=== PATIENT | female | born 1970 | race Caucasian/White ===

== ENCOUNTER → 2019-05-24 13:07 | Outpatient (CLI) | payer OTHER, SELFPAY ==
--- NOTE | ~2019-05-24 | XR_ITS ---
EXAMINATION: XR foot LT 2V, XR ankle LT 2V EXAM DATE: 05/24/2019 13:27 INDICATION: Initial encounter following injury, with pain of the left foot, ankle. TECHNIQUE: Frontal and lateral projections of the left foot. Frontal and lateral projections left a nkle. Comparison is made to prior examination from 10/08/2014. FINDINGS: There is a large left ankle joint effusion. Possible tiny acute nondisplaced closed posttr aumatic avulsion fracture at the tip of the lateral malleolus. There is overlying soft tissue swellin g. This type of injury could be treated as a sprain. The ankle mortise appears intact. Metatarsal cayla juan jose, foot unremarkable. IMPRESSION: Possible acute nondisplaced left medial malleolar tip avulsion fracture. Ankle joint eff usion. Reviewed, dictated and finalized at location B. OGRAPH RETOUCHER IMPRESSION: Possible acute nondisplaced left medial malleolar tip avulsion fra cture. Ankle joint effusion.
== END ==
PROVIDERS: PCP Family Medicine; Visit Provider Physician Assistant Medical
DX: S99.922A Unspecified injury of left foot, initial encounter (principal); S99.912A Unspecified injury of left ankle, initial encounter; X58.XXXA Exposure to other specified factors, initial encounter; M25.472 Effusion, left ankle
CPT/HCPCS: 73600; 73620

== ENCOUNTER → 2019-05-29 11:16 | Outpatient (CLI) | payer OTHER, SELFPAY ==
--- NOTE | ~2019-05-29 | XR_ITS ---
XR ankle LT min 3V DATE: 05/29/2019 11:51 INDICATION: Left ankle injury, pain TECHNIQUE: 4 views COMPARISON: None FINDINGS: There is mild plantar and posterior calcaneal enthesopathy. There is evidence of ankle joint effusion. There is mild lateral soft tissue swelling of the ankle. N o fracture or dislocation, periosteal reaction or bone destruction. IMPRESSION: Mild lateral soft tissue swelling, ankle joint effusion Lateral and posterior calcaneal enthesopathy Reviewed, dictated and finalized at location B. ER TAPER
== END ==
PROVIDERS: PCP Family Medicine; Visit Provider Nurse Practitioner Family
DX: S99.919A Unspecified injury of unspecified ankle, initial encounter (principal); M25.472 Effusion, left ankle; M77.32 Calcaneal spur, left foot; X58.XXXA Exposure to other specified factors, initial encounter
CPT/HCPCS: 73610

== ENCOUNTER 2019-09-26 10:02 | Outpatient (CLI) | payer OTHER, SELFPAY ==
--- NOTE | ~2019-09-26 | MM_ITS ---
EXAMINATION: MM screening alexy BI w naheed HISTORY: Screening mammogram, family history of breast cancer in her sister. TECHNIQUE: Craniocaudal and mediolateral oblique 3-D tomosynthesis images were obtained and synthetic 2-D images were generated. CAD analysis was submitted and interpreted. COMPARISON: 09/08/2018, 07/29/2017, 07/21/2016 BREAST PARENCHYMAL COMPOSITION: There are scattered areas of fibroglandular density. FINDINGS: There is no evidence of suspicious mass, calcification, or architectural distortion to sugg est malignancy in either breast. There has been no suspicious interval change. IMPRESSION: 1. No mammographic evidence of malignancy. 2. Recommend routine screening mammography in one year. BI-RADS Category 1: Negative Reviewed, dictated and finalized at location A.
== END 2019-09-26 10:03 | disposition home or self-care (01) ==
LOC: ANHIMG 10:04
PROVIDERS: PCP Family Medicine; Visit Provider Obstetrics & Gynecology Gynecology
DX: Z12.31 Encounter for screening mammogram for malignant neoplasm of breast (principal)
CPT/HCPCS: 77063; 77067

== ENCOUNTER → 2020-09-02 13:25 | Outpatient (CLI) | payer OTHER, SELFPAY ==
--- NOTE | ~2020-09-02 | XR_ITS ---
XR tibia fibula RT 2V 09/02/2020 13:52 INDICATION: Right leg pain PROCEDURE: 2 views right tibia/fibula COMPARISON: No prior studies for comparison. FINDINGS: Fracture, dislocation or subluxation is not identified. The soft tissues appear within norm al limits. No foreign bodies are identified. IMPRESSION: 1: NO ACUTE BONE OR JOINT ABNORMALITY IDENTIFIED. Reviewed, dictated and finalized at location A.
== END ==
PROVIDERS: PCP Family Medicine; Visit Provider Physician Assistant Medical
DX: S89.91XA Unspecified injury of right lower leg, initial encounter (principal)
CPT/HCPCS: 73590

== ENCOUNTER → 2020-10-03 10:58 | Outpatient (CLI) | payer OTHER, SELFPAY ==
--- NOTE | ~2020-10-03 | MM_ITS ---
EXAMINATION: MM screening alexy BI w naheed HISTORY: Screening mammogram TECHNIQUE: Craniocaudal and mediolateral oblique 3-D tomosynthesis images were obtained and synthetic 2-D images were generated. CAD analysis was submitted and interpreted. COMPARISON: 09/26/2019, 09/08/2018, 07/29/2017 bilateral digital screening mammogram examinations BREAST PARENCHYMAL COMPOSITION: There are scattered areas of fibroglandular density. FINDINGS: Subtle grouped microcalcifications in the posterior outer left breast on CC projection. Laxmi gnostic left mammogram with magnification views is recommended. Otherwise there is no evidence of suspicious mass, calcification, or architectural distortion to sugg est malignancy in either breast. There has been no other suspicious interval change. IMPRESSION: 1. Subtle grouped microcalcifications in posterior outer left breast on craniocaudal view 2. Diagnostic left mammogram with magnification views is recommended BI-RADS Category 0: Incomplete: Needs additional imaging evaluation. Reviewed, dictated and finalized at location A. IMPRESSION: 1. Subtle grouped microcalcifications in posterior outer left breast on cranioc audal view 2. Diagnostic left mammogram with magnification views is recommended BI-RADS Category 0: Incomplete: Needs additional imaging evaluation.
== END ==
PROVIDERS: Visit Provider Nurse Practitioner
DX: Z12.31 Encounter for screening mammogram for malignant neoplasm of breast (principal); R92.8 Other abnormal and inconclusive findings on diagnostic imaging of breast
CPT/HCPCS: 77063; 77067

== ENCOUNTER → 2020-11-12 08:19 | Outpatient (CLI) | payer OTHER, SELFPAY ==
--- NOTE | ~2020-11-12 | MM_ITS ---
EXAMINATION: MM diagnostic mammo unilat LT HISTORY: Follow-up left breast calcifications TECHNIQUE: Additional 3-D tomosynthesis images of the left breast were performed and synthetic 2-D im ages were generated. CAD analysis was submitted and interpreted. COMPARISON: Comparison to multiple prior studies sequentially, with oldest reviewed study dated 07/04. BREAST PARENCHYMAL COMPOSITION: Breast composed of scattered areas of fibroglandular density. FINDINGS: There is a cluster of calcifications in the upper outer quadrant of the left breast posteri ilda. These calcifications are stable dating back to 07/05/2015, best seen on MLO views on prior studi es. No new masses, calcifications or architectural distortion to suggest malignancy. IMPRESSION: 1. No evidence for malignancy in the left breast. Stable benign left breast calcifications, upper out er quadrant. 2. Routine yearly screening mammogram and regular clinical breast examination are recommended. BI-RADS Category 2: Benign finding(s). Reviewed, dictated and finalized at location A. IMPRESSION: 1. No evidence for malignancy in the left breast. Stable benign left breast ron cifications, upper outer quadrant. 2. Routine yearly screening mammogram and regular clinical breast examination a re recommended. BI-RADS Category 2: Benign finding(s).
== END ==
PROVIDERS: Visit Provider Obstetrics & Gynecology Gynecology
DX: R92.8 Other abnormal and inconclusive findings on diagnostic imaging of breast (principal)
CPT/HCPCS: 77065

== ENCOUNTER → 2021-03-18 11:00 | Outpatient (CLI) | payer OTHER, SELFPAY ==
--- NOTE | ~2021-03-18 | XR_ITS ---
EXAMINATION: XR chest 2V DATE: 03/18/2021 11:19 INDICATION: Chronic cough TECHNIQUE: PA and lateral views of the chest are obtained. COMPARISON: 07/01/2017 FINDINGS: The lungs are free of acute opacities. There is no pleural effusion or pneumothorax. The ca rdiomediastinal silhouette is normal. There is mild thoracic spondylosis. IMPRESSION: 1. No acute cardiopulmonary abnormality. Reviewed, dictated and finalized at location A. 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
== END ==
PROVIDERS: PCP Family Medicine; Visit Provider Nurse Practitioner Family
DX: R05.3 Chronic cough (principal)
CPT/HCPCS: 71046

== ENCOUNTER → 2021-07-01 00:22 | Outpatient (CLI) | payer OTHER, SELFPAY ==
[2021-07-01 11:17] LABS: SARS-CoV-2 RNA PCR Negative
== END ==
PROVIDERS: PCP Family Medicine; Visit Provider Internal Medicine Gastroenterology
DX: Z01.812 Encounter for preprocedural laboratory examination (principal); Z20.822 Contact with and (suspected) exposure to COVID-19
CPT/HCPCS: C9803; U0003; U0005

== ENCOUNTER 2021-07-04 01:00 | Day surgery (SDC) | payer OTHER, SELFPAY ==
[2021-06-23 14:46] VITALS: BMI 35.6
[2021-07-04 06:06] VITALS: BP 139/95; PULSE 99; RESP 18; TEMP 36.4; O2SAT 98; BMI 34.7
[2021-07-04] MEDS: LACTATED RINGERS 1,000 ML 150 ML IV CONT (06:25)
--- NOTE | 2021-07-04 07:13 | PM.HPGS ---
History of Present Illness History of Present Illness Consent: Risks, benefits, and alternatives have been discussed and questions answered. Patient agrees to proceed with procedure. Chief complaint: neoplasm screening Narrative: Olivia Clarke is a 50 year old female here for first screening colonoscopy Review of Systems Constitutional: Constitutional: Denies headache(s) and Denies weakness Eyes: Eyes: Denies blurry vision ENT: Reports Normal hearing present, Denies headache(s) and Denies neck pain Cardiovascular: Cardiovascular: Denies chest pain and Denies dyspnea Respiratory: Respiratory: Denies dyspnea Gastrointestinal: Gastrointestinal: Reports no additional gastrointestinal complaints Genitourinary: Genitourinary: Denies dysuria Musculoskeletal: Musculoskeletal: Denies neck pain Integumentary/Breasts: Skin/Breast: Denies dry skin Neurologic: Reports Normal hearing present, Denies headache(s) and Denies weakness Psychiatric: Psychiatric: Denies anxiety Endocrine: Endocrine: Denies change in body appearance Hematologic/Lymphatic: Hematologic/Lymphatic: Denies easy bleeding Allergic/Immunologic: Allergic/Immunologic: Denies urticaria PMFSH Past Medical History Medical History (Updated 07/04/21 @ 07:13 by Cr Dunne MD) Achilles tendinitis of left lower extremity BMI 35.0-35.9,adult Colon cancer screening Left ankle sprain (05/23/19) Family History Family History Grandparent Hypertension Social History Social History Smoking packs per day: 0.25 Smoking cigarettes per day: 5.0 Years smoked: 12 Smoking pack-years: 3.00 Smoking status: Current every day smoker Tobacco type: cigarettes Second hand tobacco smoke exposure: No Alcohol intake: current Alcohol use details: Socially Substance use: never Substance use type: does not use Living arrangements: alone Spiritual care concerns: No Meds Home Medications and Allergies Home Medications Medication Instructions Recorded Confirmed Type fluoxetine 40 mg capsule 80 mg PO QAM 04/24/19 07/04/21 History levothyroxine 25 mcg capsule 0.05 mcg PO DAILY 04/24/19 07/04/21 History hydrochlorothiazide 25 mg tablet See Rx Instructions .ROUTE 03/23/21 07/04/21 Rx .COMPLEX #90 tablet ergocalciferol (vitamin D2) 1,250 mcg PO WEEKLY 06/23/21 07/04/21 History penicillin V potassium 500 mg PO Q8H 06/23/21 07/04/21 History Allergies Allergy/AdvReac Type Severity Reaction Status Date / Time No Known Allergies Allergy Verified 07/04/21 06:15 Vital Signs Vital Signs - 24 hr 07/04/21 06:06 Temperature 97.6 F Pulse Rate 99 Respiratory Rate 18 Blood Pressure 139/95 H Pulse Oximetry 98 Exam Const: General: comfortable and no acute distress HENMT: General nose exam: Normal nares present Eyes: General: appearance normal, both eyes and all related structures Neck: Neck: no JVD Resp: Auscultation: clear to auscultation bilaterally Cardio: Rate: regular rate Rhythm: regular rhythm GI: Inspection: non-distended GI Palp: Yes Soft to palpation Skin: General skin exam: normal color Neuro: General: gait normal Speech: normal speech Extrem: General: normal to inspection Psych: Mental Status: mental status grossly normal Assessment and Plan Assessment and plan (1) Colon cancer screening: Code(s): Z12.11 - Encounter for screening for malignant neoplasm of colon Status: Acute Assessment and Plan: colonoscopy
--- NOTE | 2021-07-04 07:15 | WPDANESEPPF ---
Anes - Initial Pre Proc Eval Procedure: Operation Date: 07/04/21 07:30 Proposed Procedures p Screening Colonoscopy - Cr Dunne MD Date/Time: 07/04/21 07:15 Surgeon: Cr Dunne MD Pre Op Diagnosis: neoplasm screening Patient Data Age: 50 Gender: F Height: 1.68 m Weight: 97.6 kg Last Vital Signs Temp 97.6 F 07/04/21 06:06 Pulse 99 07/04/21 06:06 Resp 18 07/04/21 06:06 BP 139/95 H 07/04/21 06:06 Pulse Ox 98 07/04/21 06:06 Allergies Allergy/AdvReac Type Severity Reaction Status Date / Time No Known Allergies Allergy Verified 07/04/21 06:15 Home Medications Medication Instructions Recorded Confirmed Type fluoxetine 40 mg capsule 80 mg PO QAM 04/24/19 07/04/21 History levothyroxine 25 mcg capsule 0.05 mcg PO DAILY 04/24/19 07/04/21 History hydrochlorothiazide 25 mg tablet See Rx Instructions .ROUTE 03/23/21 07/04/21 Rx .COMPLEX #90 tablet ergocalciferol (vitamin D2) 1,250 mcg PO WEEKLY 06/23/21 07/04/21 History penicillin V potassium 500 mg PO Q8H 06/23/21 07/04/21 History Patient hx anesthesia problems: none Family hx anesthesia problems: none Results Review: All pre-operative results and documents have been reviewed as part of the pre-operative evaluation. [facility] Past Medical History Medical History (Updated 07/04/21 @ 07:13 by Cr Dunne MD) Achilles tendinitis of left lower extremity BMI 35.0-35.9,adult Colon cancer screening Left ankle sprain (05/23/19) Family History Family History Grandparent Hypertension Social History Social History Smoking packs per day: 0.25 Smoking cigarettes per day: 5.0 Years smoked: 12 Smoking pack-years: 3.00 Smoking status: Current every day smoker Tobacco type: cigarettes Second hand tobacco smoke exposure: No Alcohol intake: current Alcohol use details: Socially Substance use: never Substance use type: does not use Living arrangements: alone Spiritual care concerns: No Anes - Eval Final PreProcedure Day of Procedure 07/04/21 07:15 Patient weight: obese Heart: regular rate and rhythm Lungs: clear to auscultation Airway: Mallampati scale Last oral intake: >/= 8 hours ASA classification: III Emergent: no Anesthetic plan: proceed Anesthesia type and monitoring: general GIVS and standard monitoring Results Review: All pre-operative results and documents have been reviewed as part of the pre-operative evaluation. Informed Consent: The patient's anesthetic plan and its attendant risks and benefits were discussed with the patient/family/POA. Questions were solicited and answers provided to the satisfaction of the patient/family/POA.
[2021-07-04 07:45] VITALS: BP 127/104; PULSE 73; RESP 24; O2SAT 98
[2021-07-04 07:55] VITALS: BP 148/85; PULSE 74; RESP 21; O2SAT 97
[2021-07-04 08:05] VITALS: BP 150/86; PULSE 69; RESP 22; O2SAT 99
== END 2021-07-04 08:10 | disposition home or self-care (01) ==
PROVIDERS: PCP Family Medicine; Visit Provider Internal Medicine Gastroenterology
PROC: 0DJD8ZZ Inspection of Lower Intestinal Tract, Via Natural or Artificial Opening Endoscopic (ICD-10-PCS; CPT 45378; principal; 2021-07-04 07:30)
DX: Z12.11 Encounter for screening for malignant neoplasm of colon (principal); K57.30 Diverticulosis of large intestine without perforation or abscess without bleeding; K64.8 Other hemorrhoids; E03.9 Hypothyroidism, unspecified; F17.210 Nicotine dependence, cigarettes, uncomplicated; E66.9 Obesity, unspecified; Z68.34 Body mass index [BMI] 34.0-34.9, adult
CPT/HCPCS: 45378; C9803; J2704; J7120; U0003; U0005

== ENCOUNTER → 2021-09-29 14:53 | Outpatient (CLI) | payer OTHER, SELFPAY ==
--- NOTE | ~2021-09-29 | XR_ITS ---
XR hand RT 2V DATE: 09/29/2021 15:38 INDICATION: Pain of right fingers TECHNIQUE: AP and lateral views COMPARISON: None FINDINGS: There are nondisplaced linear intra-articular fractures of the lateral corners of the bases of the distal phalanges of the third and fourth digits. No other fracture or dislocation, periosteal reaction or bone destruction, erosive change or chondroc alcinosis. Joint spaces are preserved. IMPRESSION: Nondisplaced linear intra-articular corner fractures of the lateral base of the distal ph alanges of the third and fourth digits Reviewed, dictated and finalized at location A. IMPRESSION: Nondisplaced linear intra-articular corner fractures of the lateral base of the distal phalanges of the third and fourth digits
== END ==
PROVIDERS: PCP Family Medicine; Visit Provider Nurse Practitioner Family
DX: S62.662A Nondisplaced fracture of distal phalanx of right middle finger, initial encounter for closed fracture (principal); S62.664A Nondisplaced fracture of distal phalanx of right ring finger, initial encounter for closed fracture; X58.XXXA Exposure to other specified factors, initial encounter
CPT/HCPCS: 73120

== ENCOUNTER → 2021-10-07 12:20 | Outpatient (CLI) | payer OTHER, SELFPAY ==
--- NOTE | ~2021-10-07 | MM_ITS ---
EXAMINATION: MM screening alexy BI w naheed HISTORY: Screening TECHNIQUE: Craniocaudal and mediolateral oblique 3-D tomosynthesis images were obtained and synthetic 2-D images were generated. CAD analysis was submitted and interpreted. COMPARISON: Comparison to multiple prior studies sequentially, with oldest reviewed study dated 07/21. BREAST PARENCHYMAL COMPOSITION: The breasts are heterogenously dense, which may obscure small masses FINDINGS: There is no evidence of suspicious mass, calcification, or architectural distortion to sugg est malignancy in either breast. There has been no suspicious interval change. IMPRESSION: 1. No mammographic evidence of malignancy. 2. Recommend routine screening mammography in one year. BI-RADS Category 1: Negative Reviewed, dictated and finalized at location A.
== END ==
PROVIDERS: PCP Family Medicine; Visit Provider Obstetrics & Gynecology Gynecology
DX: Z12.31 Encounter for screening mammogram for malignant neoplasm of breast (principal)
CPT/HCPCS: 77063; 77067

== ENCOUNTER → 2022-03-31 13:16 | Outpatient (CLI) | payer OTHER, SELFPAY ==
--- NOTE | ~2022-03-31 | US_ITS ---
Pelvic ultrasound. Clinical History: Pelvic pain Technique: Realtime transabdominal and transvaginal scanning of the pelvis was performed. Color flow Doppler and Doppler spectral analysis were performed. Findings: The uterus is anteverted. The endometrial stripe has a thickness of 18 mm. No focal mass i s identified. The right ovary measures 2.5 x 1.8 x 3.0 cm. No significant right ovarian or adnexal mass is seen. V ascular flow present in the right ovary. The left ovary measures 1.9 x 1.6 x 2.3 cm. No significant left ovarian or adnexal mass is seen. Vasc ular flow present in the left ovary on Doppler spectral analysis. There is no evidence of free fluid in the cul de sac. Impression: Endometrial stripe measures 18 mm in thickness. This is possibly related to stage in the menstrual cy mariam. If the patient is postmenopausal, this would represent abnormal endometrial thickening which req uire further workup for endometrial neoplasia or hyperplasia. Reviewed, dictated and finalized at location . BI DEVELOPER Impression: Endometrial stripe measures 18 mm in thickness. This is possibly related to sta ge in the menstrual cycle. If the patient is postmenopausal, this would represe nt abnormal endometrial thickening which require further workup for endometrial neoplasia or hyperplasia.
== END ==
PROVIDERS: Visit Provider Nurse Practitioner
DX: R10.2 Pelvic and perineal pain (principal)
CPT/HCPCS: 76830; 76856

== ENCOUNTER 2023-02-25 10:13 | Outpatient (CLI) | payer OTHER, SELFPAY ==
--- NOTE | ~2023-02-25 | US_ITS ---
Pelvic ultrasound. Clinical History: Abnormal uterine bleeding Technique: Realtime transabdominal scanning of the pelvis was performed. Color flow Doppler and Doppl er spectral analysis were performed. Findings: The uterus is anteverted, and measures 7.4 x 3.8 x 4.2 cm. The endometrial stripe has a th ickness of 3 mm. No focal mass is identified. The right ovary measures 1.8 x 1.3 x 1.9 cm. No significant right ovarian or adnexal mass is seen. The left ovary measures 1.8 x 1.4 x 1.9 cm. No significant left ovarian or adnexal mass is seen. There is no evidence of free fluid in the cul de sac. Impression: Unremarkable pelvic ultrasound. Reviewed, dictated and finalized at location . ING AND BONING SUPERVISOR Impression: Unremarkable pelvic ultrasound.
== END 2023-02-25 10:14 ==
PROVIDERS: PCP Nurse Practitioner; Visit Provider Nurse Practitioner
DX: N93.8 Other specified abnormal uterine and vaginal bleeding (principal)
CPT/HCPCS: 76856

== ENCOUNTER → 2023-03-01 12:03 | Outpatient (CLI) | payer OTHER, SELFPAY ==
--- NOTE | ~2023-03-01 | MM_ITS ---
EXAMINATION: MM screening alexy BI w naheed HISTORY: Screening mammogram TECHNIQUE: Craniocaudal and mediolateral oblique 3-D tomosynthesis images were obtained and synthetic 2-D images were generated. CAD analysis was submitted and interpreted. COMPARISON: 10/07/2021 bilateral screening mammogram 11/12/2020 diagnostic left mammogram 09/29/2020, 09/26/2019 bilateral screening mammogram examinations BREAST PARENCHYMAL COMPOSITION: There are scattered areas of fibroglandular density. FINDINGS: There is no evidence of suspicious mass, calcification, or architectural distortion to sugg est malignancy in either breast. There has been no suspicious interval change. IMPRESSION: 1. No mammographic evidence of malignancy. 2. Recommend routine screening mammography in one year. BI-RADS Category 1: Negative Reviewed, dictated and finalized at location A. 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
== END ==
PROVIDERS: PCP Nurse Practitioner; Visit Provider Nurse Practitioner
DX: Z12.31 Encounter for screening mammogram for malignant neoplasm of breast (principal)
CPT/HCPCS: 77063; 77067

== ENCOUNTER 2023-03-18 11:51 | Emergency (ER) | payer OTHER, SELFPAY ==
[2023-03-18 12:04] VITALS: BP 165/86; PULSE 72; RESP 18; TEMP 37.2; O2SAT 98
--- NOTE | 2023-03-18 12:41 | ED.URI ---
HPI - URI/Sore Throat General Chief Complaint: Upper Respiratory Infection Stated Complaint: Cough,Fatigue,Body Aches Time Seen by Provider: 03/18/23 12:33 Source: patient and RN notes reviewed Mode of arrival: ambulatory Limitations: no limitations History of Present Illness HPI Narrative: Patient presents today with a 13 day history of productive cough, sore throat, postnasal drip, runny nose. Denies shortness of breath or fever. Currently rates her pain 4/10 and has been taking Mucinex with some relief. Denies known sick contacts. No history of asthma or COPD. Symptoms have been waxing and waning since onset. Smokes 2 packs per week. Related Data Home Medications Medication Instructions Recorded Confirmed levothyroxine 25 mcg capsule 0.05 mcg PO DAILY 04/24/19 03/18/23 (Tirosint) ergocalciferol (vitamin D2) 1,250 1,250 mcg PO WEEKLY 06/23/21 03/18/23 mcg (50,000 unit) capsule Allergies Allergy/AdvReac Type Severity Reaction Status Date / Time No Known Allergies Allergy Verified 03/18/23 12:17 Review of Systems Review of Systems: CONSTITUTIONAL: Denies body aches, fever, chills, or sweats. EYES: Denies visual changes, redness, or discharge. ENT: Denies congestion, or otalgia.+ rhinorrhea, postnasal drip, sore throat CARDIOVASCULAR: Denies chest pain, palpitations, or edema. RESPIRATORY: Denies dyspnea.+ cough GASTROINTESTINAL: Denies abdominal pain, nausea, vomiting, or diarrhea. GENITOURINARY: Denies dysuria or hematuria. SKIN: Denies rash, itching, or wounds. MUSCULOSKELETAL: Denies back pain, joint pain, or myalgia. NEUROLOGIC: Denies headache, numbness, tingling, or weakness. PSYCH: Denies depression or anxiety. [facility] Past Medical History Medical History Achilles tendinitis of left lower extremity BMI 35.0-35.9,adult BMI 37.0-37.9, adult Colon cancer screening Left ankle sprain (05/23/19) Family History Family History Grandparent Hypertension Father Acute myocardial infarction Mother No problems noted. Sibling Breast cancer Social History Social History Smoking packs per day: 0.25 Smoking cigarettes per day: 5.0 Years smoked: 12 Smoking pack-years: 3.00 Smoking status: Current every day smoker (planning to quit cold turkey) Tobacco type: cigarettes Second hand tobacco smoke exposure: No Alcohol intake: current Alcohol use details: Socially Substance use: never Substance use type: does not use Lack of Transportation: No Lack of Food: Never True Current Housing: I Have Housing Concerned About Future Housing: No Difficulty Paying Gas/Electric Bills: No Difficulty Paying for Meds: No Currently Unemployed: No Education: High School Diploma/GED Difficulty w/ Childcare or Family Care: No Living arrangements: with family 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 Please see nursing chart for further information. There is no relevant family history pertinent to the presenting complaint Exam Narrative: GENERAL: Mildly ill-appearing, well-nourished, and in no acute distress. HEAD: Normocephalic, atraumatic. EYES: EOMI. No redness or drainage. Conjunctivae normal. ENT: Mucous membranes pink and moist. Nares congested. No rhinorrhea. TMs normal bilaterally. Throat normal. Uvula midline. NECK: Normal AROM. Supple. No lymphadenopathy. CHEST: No respiratory distress. Expiratory wheezes throughout, otherwise clear HEART: Regular rate and rhythm. No murmur appreciated.
== END 2023-03-18 12:50 | disposition home or self-care (01) ==
PROVIDERS: Emergency Provider Nurse Practitioner; PCP Family Medicine
DX: J40 Bronchitis, not specified as acute or chronic (principal); J06.9 Acute upper respiratory infection, unspecified; F17.210 Nicotine dependence, cigarettes, uncomplicated
CPT/HCPCS: 99213; G0463

== ENCOUNTER 2023-03-23 12:59 | Outpatient (CLI) | payer OTHER, SELFPAY ==
--- NOTE | ~2023-03-23 | XR_ITS ---
EXAMINATION: XR knee RT min 4V DATE: 03/23/2023 13:21 INDICATION: Right knee pain TECHNIQUE: Four views of the right knee were obtained. COMPARISON: None. FINDINGS: Alignment is normal. No fracture or osteochondral lesion. There is mild joint space narrowi ng in the medial compartment. No joint effusion/synovitis. Soft tissues are unremarkable. IMPRESSION: 1. Mild osteoarthritis without acute osseous abnormality. Reviewed, dictated and finalized at location L. TIONAL TESTER TYPEWRITERS
== END 2023-03-23 13:00 ==
PROVIDERS: PCP Nurse Practitioner Family; Visit Provider Nurse Practitioner Family
DX: M17.11 Unilateral primary osteoarthritis, right knee (principal)
CPT/HCPCS: 73564

== ENCOUNTER 2023-04-15 15:00 | Outpatient (CLI) | payer OTHER, SELFPAY ==
--- NOTE | ~2023-04-15 | XR_ITS ---
XR chest 2V DATE: 04/15/2023 15:17 INDICATION: Wheezing TECHNIQUE: 2 views COMPARISON: None FINDINGS: Pectus excavatum. Normal heart size. No hilar or mediastinal enlargement. No pulmonary infiltrate or consolidation, ple ural effusion or pulmonary vascular congestion or pneumothorax. IMPRESSION: Pectus excavatum No active cardiopulmonary disease Reviewed, dictated and finalized at location L. WALS REPRESENTATIVE
== END 2023-04-15 15:01 ==
PROVIDERS: PCP Nurse Practitioner Family; Visit Provider Nurse Practitioner Family
DX: R06.2 Wheezing (principal); Q67.6 Pectus excavatum
CPT/HCPCS: 71046

== ENCOUNTER 2023-07-12 01:03 | Day surgery (SDC) | payer OTHER, SELFPAY ==
[2023-07-02 09:45] VITALS: BMI 38.6
--- NOTE | 2023-07-02 09:49 | PC.NURSE ---
Report to the Outpatient Waiting Room, entrance under the green pavilion located off [facility], at time 0700 on date 07/12/23. Planned Procedure Time: 0900. Time changes happen often and if your time is changed the preop area will call you the afternoon before. - You and your visitor will be asked to self-screen and do not enter if you have any COVID symptoms. - A mask is optional within the hospital at this time. Patients may have clear liquids (water, carbonated beverages, clear teas, apple juice) until 3 hours prior to surgery with a maximum of 20 ounces. - No food from midnight until time of surgery Take the following medications with a SIP of water the morning of surgery: AMLODIPINE, LEVOTHYROXINE DO NOT STOP ANY OF YOUR OTHER PRESCRIPTION MEDICATIONS PRIOR TO SURGERY ?EXCEPT THE FOLLOWING Medications to discontinue per physician: VITAMINS Date to take last dose: 07/08/23 Please no make-up, nail russian, hairspray, perfume, deodorant, or body powder the day of surgery. No jewelry (including any body piercings) or valuables the day of surgery, leave them at home. Please take a shower or bath the night before, or the morning of, surgery with an antibacterial soap. Wear comfortable, loose fitting clothing. - Jewelry must be removed prior to entering the operating room. Rings and piercings that are not removed may be cut off. - The hospital will not accept responsibility for valuables. - Please leave all valuables, including medications, at home the day of surgery. If you are going home after surgery, a licensed driver wheelchair must drive you home. - NO public transportation without another adult if you receive anesthesia. - We recommend that an adult stay with you for 24 hours following discharge. - We also recommend that you do not drive, make important decision, drink alcoholic beverages, or take any drugs that were not prescribed by your health care provider for at least 24 hours after your discharge time. Follow any additional instructions given to you from your surgeon. If you or anyone in your household have experienced Covid symptoms in the past week, please notify your surgeon or the nurse liaison at the phone number below for possible testing. Telephone instructions given to WAYNE GRAJEDA and asked if any additional questions and then verbalized understanding. Patient advised to call surgeon office or pre surgery nurse liaison [phone] if any additional questions.
--- NOTE | 2023-07-12 06:30 | WPDANESEPPF ---
Anes - Initial Pre Proc Eval Procedure: Operation Date: 07/12/23 09:00 Proposed Procedures p Hysteroscopy Dilation and Curettage - Dana Artis MD Date/Time: 07/12/23 06:30 Surgeon: Dana Artis MD Pre Op Diagnosis: Abnormal Uterine Bleeding Patient Data Age: 52 Gender: F Height: 1.69 m Weight: 110.25 kg Allergies Allergy/AdvReac Type Severity Reaction Status Date / Time No Known Allergies Allergy Verified 07/12/23 07:15 Home Medications Medication Instructions Recorded Confirmed Type levothyroxine 25 mcg capsule 50 mcg PO DAILY 04/24/19 07/06/23 History (Tirosint) ergocalciferol (vitamin D2) 1,250 1,250 mcg PO WEEKLY 06/23/21 07/06/23 History mcg (50,000 unit) capsule albuterol sulfate 90 mcg/actuation 2 puff inhalation Q4-6H PRN 03/18/23 07/06/23 Rx aerosol inhaler (ProAir HFA) shortness of breath or wheezing #18 grams inhalational spacing device #1 ea 03/18/23 07/06/23 Rx (BreatheRite MDI Spacer) rosuvastatin 20 mg tablet (Crestor) 20 mg PO DAILY #90 tabs 03/23/23 07/06/23 Rx amlodipine 5 mg tablet 5 mg PO DAILY #90 tabs 05/28/23 07/06/23 Rx omeprazole 20 mg capsule,delayed See Rx Instructions .Route 06/09/23 07/06/23 Rx release .COMPLEX #90 caps hydrochlorothiazide 25 mg tablet See Rx Instructions .Route 07/06/23 Rx .COMPLEX #90 tabs Patient hx anesthesia problems: none Family hx anesthesia problems: none Results Review: All pre-operative results and documents have been reviewed as part of the pre-operative evaluation. [facility] Past Medical History Medical History (Updated 07/12/23 @ 07:23 by Dana Artis MD) BMI 38.0-38.9,adult Depression Elevated cholesterol Hypertension Hypothyroidism (normal spontaneous vaginal delivery) x2 Osteoarthritis Sleep apnea Surgical History Surgical History (Updated 07/12/23 @ 07:22 by Dana Artis MD) History of hysteroscopy 2008 benign Family History Family History Grandparent Hypertension Father Acute myocardial infarction Mother No problems noted. Sibling Breast cancer Social History Social History Smoking packs per day: 0.25 Smoking cigarettes per day: 5.0 Years smoked: 35 Smoking pack-years: 8.75 Smoking status: Former smoker Tobacco type: cigarettes Second hand tobacco smoke exposure: No Smoking end date: 04/11/23 Alcohol intake: current Drinks per week: 20 Alcohol use details: WEEKENDS Substance use: never Substance use type: does not use Lack of Transportation: No Lack of Food: Never True Current Housing: I Have Housing Concerned About Future Housing: No Difficulty Paying Gas/Electric Bills: No Difficulty Paying for Meds: No Currently Unemployed: No Education: High School Diploma/GED Difficulty w/ Childcare or Family Care: No Living arrangements: with family 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 Informed Consent: The patient's anesthetic plan and its attendant risks and benefits were discussed with the patient/family/POA. Questions were solicited and answers provided to the satisfaction of the patient/family/POA.
[2023-07-12 07:08] VITALS: BP 148/82; PULSE 84; RESP 18; TEMP 36.4; O2SAT 97
--- NOTE | 2023-07-12 07:18 | WPDHPUPDATE1 ---
History and Physical Update Update Date/Time: 07/12/23 07:18 History and Physical has been reviewed, including an updated exam of the patient. There are NO changes in the patient's condition. Risks, benefits, and alternatives have been discussed and questions answered. Patient agrees to proceed with procedure.
--- NOTE | 2023-07-12 07:19 | PM.HPGS ---
History of Present Illness History of Present Illness Consent: Risks, benefits, and alternatives have been discussed and questions answered. Patient agrees to proceed with procedure. Chief complaint: Abnormal Uterine Bleeding Narrative: Olivia Clarke is a 52 year old female with heavy bleeding. Cycles every 20 to 40 days is lasting 17 days. She has been going through a tampon every 1 to 2 hours. Pelvic ultrasound is normal. It was recommended to undergo D&C hysteroscopy for further evaluation. Risks infection, bleeding, perforation, and possible pathology were discussed. Patient voices understanding and agrees to proceed. Review of Systems Review of Systems: not repeated day of surgery; patient states no changes in status PMF Past Medical History Medical History (Updated 07/12/23 @ 07:23 by Dana Artis MD) BMI 38.0-38.9,adult Depression Elevated cholesterol Hypertension Hypothyroidism (normal spontaneous vaginal delivery) x2 Osteoarthritis Sleep apnea Surgical History Surgical History (Updated 07/12/23 @ 07:22 by Dana Artis MD) History of hysteroscopy 2008 benign Family History Family History Grandparent Hypertension Father Acute myocardial infarction Mother No problems noted. Sibling Breast cancer Social History Social History Smoking packs per day: 0.25 Smoking cigarettes per day: 5.0 Years smoked: 35 Smoking pack-years: 8.75 Smoking status: Former smoker Tobacco type: cigarettes Second hand tobacco smoke exposure: No Smoking end date: 04/11/23 Alcohol intake: current Drinks per week: 20 Alcohol use details: WEEKENDS Substance use: never Substance use type: does not use Lack of Transportation: No Lack of Food: Never True Current Housing: I Have Housing Concerned About Future Housing: No Difficulty Paying Gas/Electric Bills: No Difficulty Paying for Meds: No Currently Unemployed: No Education: High School Diploma/GED Difficulty w/ Childcare or Family Care: No Living arrangements: with family 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 Gender identity (if verbalized by the patient): Female Spiritual care concerns: No Meds Home Medications and Allergies Home Medications Medication Instructions Recorded Confirmed Type levothyroxine 25 mcg capsule 50 mcg PO DAILY 04/24/19 07/06/23 History (Tirosint) ergocalciferol (vitamin D2) 1,250 1,250 mcg PO WEEKLY 06/23/21 07/06/23 History mcg (50,000 unit) capsule albuterol sulfate 90 mcg/actuation 2 puff inhalation Q4-6H PRN 03/18/23 07/06/23 Rx aerosol inhaler (ProAir HFA) shortness of breath or wheezing #18 grams inhalational spacing device #1 ea 03/18/23 07/06/23 Rx (BreatheRite MDI Spacer) rosuvastatin 20 mg tablet (Crestor) 20 mg PO DAILY #90 tabs 03/23/23 07/06/23 Rx amlodipine 5 mg tablet 5 mg PO DAILY #90 tabs 05/28/23 07/06/23 Rx omeprazole 20 mg capsule,delayed See Rx Instructions .Route 06/09/23 07/06/23 Rx release .COMPLEX #90 caps hydrochlorothiazide 25 mg tablet See Rx Instructions .Route 07/06/23 Rx .COMPLEX #90 tabs Allergies Allergy/AdvReac Type Severity Reaction Status Date / Time No Known Allergies Allergy Verified 07/12/23 07:15 Vital Signs Vital Signs - 24 hr 07/12/23 07:08 Temperature 97.6 F Pulse Rate 84 Respiratory Rate 18 Blood Pressure 148/82 H Pulse Oximetry 97 Oxygen Delivery Room Air Exam Const: General: healthy appearing and alert Orientation/consciousness: patient oriented x3 Resp: Effort & Inspection: normal respiratory effort GI: GI Palp: Yes Soft to palpation, No Tenderness to palpation present (GI) and No Palpable mass present : External Female Exam: normal external appearance Speculum Exam -
[2023-07-12] MEDS: LACTATED RINGERS 1,000 ML 30 ML IV CONT (07:20)
[2023-07-12] MEDS: ACETAMINOPHEN 500 MG TABLET 1000 MG PO (07:34)
[2023-07-12 09:08] VITALS: BP 127/72; PULSE 82; RESP 14; O2SAT 100
[2023-07-12 09:30] VITALS: BP 130/77; PULSE 74; O2SAT 97
[2023-07-12] MEDS: oxyCODONE HCL (*CRX) 5 MG TAB IR PO (09:35)
[2023-07-12 10:00] VITALS: BP 123/68; PULSE 71
--- NOTE | 2023-07-16 11:50 | P.OP_ITS ---
Procedure Note - Detailed Date of Procedure 07/12/23 Pre-op Diagnosis Abnormal Uterine Bleeding Post-op Diagnosis Same Procedure Performed D&C hysteroscopy Surgeon Dana Artis MD Anesthesia MAC Findings endometrium appears grossly normal Description of Procedure The patient is taken to the operating room and placed under anesthesia in the dorsal lithotomy position. She was prepped and draped in usual sterile fashion. [place] speculum was placed in the vagina and the cervix grasped the anterior lip with a tenaculum. The uterus is sounded and hysteroscope placed. The diagnostic hysteroscope is benign appearing therefore removed. The endometrium was curetted with a sharp OO curette until a good uterine cry was noted in all areas. All instruments are removed. Sponge, needle, and instrument counts are correct per the OR staff. The patient was awakened from anesthesia and taken to recovery in stable condition. Estimated Blood Loss 5 Drains No Packing No Pathology Yes ( Endometrial curettings) Complications No immediate complications Condition Stable Disposition PACU
== END 2023-07-12 10:20 | disposition home or self-care (01) ==
PROVIDERS: PCP Family Medicine; Visit Provider Obstetrics & Gynecology Gynecology
PROC: 0U5B8ZZ Destruction of Endometrium, Via Natural or Artificial Opening Endoscopic (ICD-10-PCS; CPT 58563; principal; 2023-07-12 09:00)
DX: N92.0 Excessive and frequent menstruation with regular cycle (principal); I10 Essential (primary) hypertension; E03.9 Hypothyroidism, unspecified; E78.00 Pure hypercholesterolemia, unspecified; G47.30 Sleep apnea, unspecified; F32.A Depression, unspecified; E66.9 Obesity, unspecified; Z68.38 Body mass index [BMI] 38.0-38.9, adult; Z79.51 Long term (current) use of inhaled steroids; Z87.891 Personal history of nicotine dependence; Z80.3 Family history of malignant neoplasm of breast; Z82.49 Family history of ischemic heart disease and other diseases of the circulatory system
CPT/HCPCS: 58558; 88305; A9270; J2250; J2405; J2704; J3010; J7120

== ENCOUNTER 2023-08-19 11:17 | Outpatient (CLI) | payer OTHER, SELFPAY ==
[2023-08-19 11:56] LABS: Anion Gap 5 mmol/L (4-12); Blood Urea Nitrogen 19 mg/dL (7-17); Calcium 9.3 mg/dL (8.4-10.2); Carbon Dioxide 28 mmol/L (22-30); Chloride 105 mmol/L (98-107); Estimated Glomerular Filt Rate > 60; Glucose 94 mg/dL (65-110); Potassium 3.6 mmol/L (3.4-5.0); Sodium 138 mmol/L (137-145)
== END 2023-08-19 11:18 | disposition home or self-care (01) ==
LOC: ANHSURGERY 11:22
PROVIDERS: Anesthesiology; PCP Family Medicine; Visit Provider Obstetrics & Gynecology Gynecology
DX: Z79.899 Other long term (current) drug therapy (principal); Z01.818 Encounter for other preprocedural examination
CPT/HCPCS: 36415; 80048

== ENCOUNTER 2023-08-23 01:27 | Day surgery (SDC) | payer OTHER, SELFPAY ==
[2023-08-18 10:43] VITALS: BMI 40.1
--- NOTE | 2023-08-18 10:49 | PC.NURSE ---
Report to the Outpatient Waiting Room, entrance under the green pavilion located off [facility], at time _0730_ on date _[id number]_. Planned Procedure Time: _0930_. Time changes happen often and if your time is changed the preop area will call you the afternoon before. - You and your visitor will be asked to self-screen and do not enter if you have any COVID symptoms. - A mask is optional within the hospital at this time. Patients may have clear liquids (water, carbonated beverages, clear teas, apple juice) until 3 hours prior to surgery with a maximum of 20 ounces. - No food from midnight until time of surgery Take the following medications with a SIP of water the morning of surgery: ___Amlodipine and Levothyroxine DO NOT STOP ANY OF YOUR OTHER PRESCRIPTION MEDICATIONS PRIOR TO SURGERY ?EXCEPT THE FOLLOWING Medications to discontinue per physician None Date to take last dose Please no make-up, nail serbian, hairspray, perfume, deodorant, or body powder the day of surgery. No jewelry (including any body piercings) or valuables the day of surgery, leave them at home. Please take a shower or bath the night before, or the morning of, surgery with an antibacterial soap. Wear comfortable, loose fitting clothing. - Jewelry must be removed prior to entering the operating room. Rings and piercings that are not removed may be cut off. - The hospital will not accept responsibility for valuables. - Please leave all valuables, including medications, at home the day of surgery. If you are going home after surgery, a licensed log truck driver must drive you home. - NO public transportation without another adult if you receive anesthesia. - We recommend that an adult stay with you for 24 hours following discharge. - We also recommend that you do not drive, make important decision, drink alcoholic beverages, or take any drugs that were not prescribed by your health care provider for at least 24 hours after your discharge time. Follow any additional instructions given to you from your surgeon. If you or anyone in your household have experienced Covid symptoms in the past week, please notify your surgeon or the nurse liaison at the phone number below for possible testing. Telephone instructions given to __Olivia___and asked if any additional questions and then verbalized understanding. Patient advised to call surgeon office or pre surgery nurse liaison [phone] if any additional questions.
--- NOTE | 2023-08-23 07:14 | WPDHPUPDATE1 ---
History and Physical Update Update Date/Time: 08/23/23 07:14 History and Physical has been reviewed, including an updated exam of the patient. There are NO changes in the patient's condition. Risks, benefits, and alternatives have been discussed and questions answered. Patient agrees to proceed with procedure.
--- NOTE | 2023-08-23 07:14 | PM.HPGS ---
History of Present Illness History of Present Illness Consent: Risks, benefits, and alternatives have been discussed and questions answered. Patient agrees to proceed with procedure. Chief complaint: Menorrhagia Narrative: Olivia Clarke is a 52 year old female with menorrhagia. Medical options were discussed with the patient and she declined all medical options. Patient wishes to proceed with Yasmine endometrial ablation. Risks of infection, bleeding, perforation, and success were reviewed. Patient voices understanding and agrees to proceed. Review of Systems Review of Systems: not repeated day of surgery; patient states no changes in status PMFSH Past Medical History Medical History (Updated 07/12/23 @ 07:23 by Dana Artis MD) BMI 38.0-38.9,adult Depression Elevated cholesterol Hypertension Hypothyroidism (normal spontaneous vaginal delivery) x2 Osteoarthritis Sleep apnea Surgical History Surgical History (Updated 08/23/23 @ 07:16 by Dana Artis MD) History of hysteroscopy 2008 & 2023 benign Family History Family History Grandparent Hypertension Father Acute myocardial infarction Mother No problems noted. Sibling Breast cancer Social History Social History Smoking packs per day: 0.25 Smoking cigarettes per day: 5.0 Years smoked: 20 Smoking pack-years: 5.00 Smoking status: Former smoker Tobacco type: cigarettes Second hand tobacco smoke exposure: No Smoking end date: 03/12/23 Alcohol intake: current Drinks per week: 20 Alcohol use details: WEEKENDS Substance use: never Substance use type: does not use Lack of Transportation: No Lack of Food: Never True Current Housing: I Have Housing Concerned About Future Housing: No Difficulty Paying Gas/Electric Bills: No Difficulty Paying for Meds: No Currently Unemployed: No Education: High School Diploma/GED Difficulty w/ Childcare or Family Care: No Living arrangements: with family 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 Gender identity (if verbalized by the patient): Female Spiritual care concerns: No Meds Home Medications and Allergies Home Medications Medication Instructions Recorded Confirmed Type levothyroxine 25 mcg capsule 50 mcg PO DAILY 04/24/19 08/18/23 History (Tirosint) ergocalciferol (vitamin D2) 1,250 1,250 mcg PO WEEKLY 06/23/21 08/18/23 History mcg (50,000 unit) capsule albuterol sulfate 90 mcg/actuation 2 puff inhalation Q4-6H PRN 03/18/23 08/18/23 Rx aerosol inhaler (ProAir HFA) shortness of breath or wheezing #18 grams inhalational spacing device #1 ea 03/18/23 08/18/23 Rx (BreatheRite MDI Spacer) rosuvastatin 20 mg tablet (Crestor) 20 mg PO DAILY #90 tabs 03/23/23 08/18/23 Rx amlodipine 5 mg tablet 5 mg PO DAILY #90 tabs 05/28/23 08/18/23 Rx omeprazole 20 mg capsule,delayed See Rx Instructions .Route 06/09/23 08/18/23 Rx release .COMPLEX #90 caps hydrochlorothiazide 25 mg tablet See Rx Instructions .Route 07/06/23 08/18/23 Rx .COMPLEX #90 tabs Allergies Allergy/AdvReac Type Severity Reaction Status Date / Time No Known Allergies Allergy Verified 08/18/23 10:41 Exam Const: General: healthy appearing and alert Orientation/consciousness: patient oriented x3 Resp: Effort & Inspection: normal respiratory effort : External Female Exam: normal external appearance Speculum Exam - Vagina: normal appearance of the vagina and normal vaginal discharge Speculum Exam - Cervix: normal appearance of the cervix Bimanual exam- vagina & uterus: uterine size normal and consistency normal Bimanual Exam- Adnexa, other: normal adnexae and No adnexal tenderness Neuro: General: patient oriented x3 Assessment and Plan Assessment and plan (1)
[2023-08-23 07:55] VITALS: BP 144/81; PULSE 88; RESP 14; TEMP 36.2; O2SAT 97
[2023-08-23] MEDS: LACTATED RINGERS 1,000 ML 30 ML IV CONT (07:55)
[2023-08-23] MEDS: ACETAMINOPHEN 500 MG TABLET 1000 MG PO (07:55)
--- NOTE | 2023-08-23 08:22 | WPDANESEPPF ---
Anes - Initial Pre Proc Eval Procedure: Operation Date: 08/23/23 09:30 Proposed Procedures p Hysteroscopy with Yasmine Endometrial Ablation - Dana Artis MD Date/Time: 08/23/23 08:22 Surgeon: Dana Artis MD Pre Op Diagnosis: Menorrhagia Patient Data Age: 52 Gender: F Height: 1.68 m Weight: 112.9 kg Last Vital Signs Temp 97.1 F L 08/23/23 07:55 Pulse 88 08/23/23 07:55 Resp 14 08/23/23 07:55 BP 144/81 H 08/23/23 07:55 Pulse Ox 97 08/23/23 07:55 O2 Del Method Room Air 08/23/23 07:55 Allergies Allergy/AdvReac Type Severity Reaction Status Date / Time No Known Allergies Allergy Verified 08/23/23 08:08 Home Medications Medication Instructions Recorded Confirmed Type levothyroxine 25 mcg capsule 50 mcg PO DAILY 04/24/19 08/18/23 History (Tirosint) ergocalciferol (vitamin D2) 1,250 1,250 mcg PO WEEKLY 06/23/21 08/18/23 History mcg (50,000 unit) capsule albuterol sulfate 90 mcg/actuation 2 puff inhalation Q4-6H PRN 03/18/23 08/18/23 Rx aerosol inhaler (ProAir HFA) shortness of breath or wheezing #18 grams inhalational spacing device #1 ea 03/18/23 08/18/23 Rx (BreatheRite MDI Spacer) rosuvastatin 20 mg tablet (Crestor) 20 mg PO DAILY #90 tabs 03/23/23 08/18/23 Rx amlodipine 5 mg tablet 5 mg PO DAILY #90 tabs 05/28/23 08/18/23 Rx omeprazole 20 mg capsule,delayed See Rx Instructions .Route 06/09/23 08/18/23 Rx release .COMPLEX #90 caps hydrochlorothiazide 25 mg tablet See Rx Instructions .Route 07/06/23 08/18/23 Rx .COMPLEX #90 tabs Patient hx anesthesia problems: none Family hx anesthesia problems: none Results Review: All pre-operative results and documents have been reviewed as part of the pre-operative evaluation. [facility] Past Medical History Medical History BMI 38.0-38.9,adult Depression Elevated cholesterol Hypertension Hypothyroidism (normal spontaneous vaginal delivery) x2 Osteoarthritis Sleep apnea Surgical History Surgical History History of hysteroscopy 2008 & 2023 benign Family History Family History Grandparent Hypertension Father Acute myocardial infarction Mother No problems noted. Sibling Breast cancer Social History Social History Smoking packs per day: 0.25 Smoking cigarettes per day: 5.0 Years smoked: 20 Smoking pack-years: 5.00 Smoking status: Former smoker Tobacco type: cigarettes Second hand tobacco smoke exposure: No Smoking end date: 03/12/23 Alcohol intake: current Drinks per week: 20 Alcohol use details: WEEKENDS Substance use: never Substance use type: does not use Lack of Transportation: No Lack of Food: Never True Current Housing: I Have Housing Concerned About Future Housing: No Difficulty Paying Gas/Electric Bills: No Difficulty Paying for Meds: No Currently Unemployed: No Education: High School Diploma/GED Difficulty w/ Childcare or Family Care: No Living arrangements: with family 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 ) Neurological: alert and oriented Last oral intake: >/= 8 hours ASA classification: III Emergent: no Anesthetic plan: proceed Anesthesia type and monitoring: general GIVS and standard monitoring Results Review: All pre-operative results and documents have been reviewed as part of the pre-opera
[2023-08-23] MEDS: KETOROLAC 30 MG/ML VIAL (*BKC) IV PUSH (09:23)
[2023-08-23] MEDS: LIDOCAINE 1% BUFFERED WITH 8.4% SODIUM BICARB 1 ML SYRINGE 10 ML INFILTRATE (09:25)
--- NOTE | 2023-08-23 09:34 | P.OP_ITS ---
Procedure Note - Detailed Date of Procedure 08/23/23 Pre-op Diagnosis Menorrhagia Post-op Diagnosis Same Procedure Performed Yasmine endometrial ablation Surgeon Dana Artis MD Anesthesia MAC Findings uterus sounds to 8cm and appears grossly normal Description of Procedure The patient is taken to the operating room and placed under anesthesia in the dorsal lithotomy position. She was prepped and draped in the usual sterile fashion. [place] speculum was placed in the vagina and the cervix grasped on the anterior lip with a tenaculum. The uterus is sounded to 8cm. The diagnostic hysteroscope was placed and with no abnormalities noted it is r emoved. The cervix was serially dilated to an 8 Hegar. The Yasmine device was opened and placed at 5cm. The cavity assessment passed on the 1st attempt and the treatment cycle lasted the full 2minutes. The ablation device is removed. The hysteroscope was replaced and good ablation effect is noted. All instruments are removed. Sponge, needle, and instrument counts are correct per the OR staff. Patient was awakened from anesthesia and taken during cuff repeat stable condition. Estimated Blood Loss 5 Drains No Packing No Pathology None sent Complications No immediate complications Condition Stable Disposition PACU
[2023-08-23 09:35] VITALS: BP 150/91; PULSE 87; RESP 16; O2SAT 95
[2023-08-23 10:05] VITALS: BP 162/91; PULSE 72
[2023-08-23] MEDS: oxyCODONE HCL (*CRX) 5 MG TAB IR PO (10:16)
== END 2023-08-23 10:34 | disposition home or self-care (01) ==
PROVIDERS: PCP Family Medicine; Visit Provider Obstetrics & Gynecology Gynecology
PROC: 0U5B8ZZ Destruction of Endometrium, Via Natural or Artificial Opening Endoscopic (ICD-10-PCS; CPT 58563; principal; 2023-08-23 09:30)
DX: N92.0 Excessive and frequent menstruation with regular cycle (principal); I10 Essential (primary) hypertension; F32.A Depression, unspecified; E78.00 Pure hypercholesterolemia, unspecified; E03.9 Hypothyroidism, unspecified; G47.30 Sleep apnea, unspecified; E66.9 Obesity, unspecified; Z68.41 Body mass index [BMI] 40.0-44.9, adult; Z79.51 Long term (current) use of inhaled steroids; Z98.890 Other specified postprocedural states; Z87.891 Personal history of nicotine dependence; Z80.3 Family history of malignant neoplasm of breast; Z82.49 Family history of ischemic heart disease and other diseases of the circulatory system
CPT/HCPCS: 58563; 36415; 80048; A9270; J1885; J2250; J2704; J3010; J7120

== ENCOUNTER 2023-12-21 13:00 | Outpatient (CLI) | payer OTHER, SELFPAY ==
--- NOTE | 2023-12-21 14:30 | NEURO_ITS ---
Impression: # Complains of numbness of hands. Non-diabetic. # Mild sensory Carpal Tunnel Syndrome. # No ulnar neuropathy. # Normal needle/EMG exam. Nerve Conduction Studies Anti Sensory Summary Table Stim Site NR Peak (ms) P-T Amp (?V) Site1 Site2 Delta-P (ms) Dist (cm) Pancho (m/s) Left Median Anti Sensory (2-3nd Digit) Wrist 3.3 66.2 Wrist 2-3nd Digit 3.3 14.0 42 Wrist 3.5 35.0 Wrist 2-3nd Digit 3.3 14.0 42 Right Median Anti Sensory Run #1 (2-3nd Digit) Wrist 3.8 90.7 Wrist 2-3nd Digit 3.8 14.0 37 Wrist 6.2 130.4 Wrist 2-3nd Digit 3.8 14.0 37 Right Median Anti Sensory Run #2 (2-3nd Digit) NO RESPONSE Wrist 3.9 150.1 Wrist 2-3nd Digit 3.9 14.0 36 Wrist 6.3 311.6 Wrist 2-3nd Digit 3.9 14.0 36 Left Radial Anti Sensory (Base 1st Digit) Wrist 3.0 42.6 Wrist Base 1st Digit 3.0 0.0 Right Radial Anti Sensory (Base 1st Digit) Wrist 2.2 26.1 Wrist Base 1st Digit 2.2 0.0 Left Ulnar Anti Sensory (5th Digit) Wrist 2.1 62.8 Wrist 5th Digit 2.1 14.0 67 Right Ulnar Anti Sensory (5th Digit) Wrist 2.3 49.8 Wrist 5th Digit 2.3 14.0 61 Motor Summary Table Stim Site NR Onset (ms) O-P Amp (mV) Site1 Site2 Delta-0 (ms) Dist (cm) Pancho (m/s) Left Median Motor (Abd Poll Brev) Wrist 3.1 4.9 Elbow Wrist 5.2 27.0 52 Elbow 8.3 3.7 Right Median Motor (Abd Poll Brev) Wrist 3.6 5.5 Elbow Wrist 5.5 29.0 53 Elbow 9.1 3.7 Left Ulnar Motor (Abd Dig Minimi) Wrist 2.4 5.0 A Elbow Wrist 5.5 30.0 55 A Elbow 7.9 3.6 Right Ulnar Motor (Abd Dig Minimi) Wrist 2.4 7.1 A Elbow Wrist 5.6 32.0 57 A Elbow 8.0 4.5 F Wave Studies NR F-Lat (ms) L-R F-Lat (ms) Left Median (Mrkrs) (Abd Poll Brev) 28.50 0.38 Right Median (Mrkrs) (Abd Poll Brev) 28.12 0.38 Left Ulnar (Mrkrs) (Abd Dig Min) 27.95 0.76 Right Ulnar (Mrkrs) (Abd Dig Min) 27.19 0.76 EMG Side Muscle Nerve Root Ins Act Fibs Amp Dur Recrt Comment Right 1stDorInt Ulnar C8-T1 Nml Nml Nml Nml Nml Right Ext Indicis Radial (Post Int) C7-8 Nml Nml Nml Nml Nml Right Ext Digitorum Radial (Post Int) C7-8 Nml Nml Nml Nml Nml Right BrachioRad Radial C5-6 Nml Nml Nml Nml Nml Right PronatorTeres Median C6-7 Nml Nml Nml Nml Nml Right Abd Poll Brev Median C8-T1 Nml Nml Nml Nml Nml Right ABD Dig Min Ulnar C8-T1 Nml Nml Nml Nml Nml Left 1stDorInt Ulnar C8-T1 Nml Nml Nml Nml Nml Left Ext Indicis Radial (Post Int) C7-8 Nml Nml Nml Nml Nml Left Ext Digitorum Radial (Post Int) C7-8 Nml Nml Nml Nml Nml Left BrachioRad Radial C5-6 Nml Nml Nml Nml Nml Left PronatorTeres Median C6-7 Nml Nml Nml Nml Nml Left Abd Poll Brev Median C8-T1 Nml Nml Nml Nml Nml Left ABD Dig Min Ulnar C8-T1 Nml Nml Nml Nml Nml MTDD
== END 2023-12-21 13:01 | disposition home or self-care (01) ==
LOC: ANHNEURO 13:02
PROVIDERS: PCP Family Medicine; Visit Provider Nurse Practitioner Family
DX: R20.0 Anesthesia of skin (principal); R20.2 Paresthesia of skin; G56.00 Carpal tunnel syndrome, unspecified upper limb
CPT/HCPCS: 95886; 95911

== ENCOUNTER 2024-02-02 07:28 | Outpatient (CLI) | payer OTHER, SELFPAY ==
--- NOTE | ~2024-02-02 | CT_ITS ---
EXAMINATION: CT abdomen pelvis wo/w con DATE: 02/02/2024 08:10 INDICATION: Gross hematuria. TECHNIQUE: Computed tomography (CT) of the abdomen and pelvis was performed without and with intraven ous contrast using a total of 130 mL Omnipaque-350 intravenous contrast with a double-bolus technique for simultaneous opacification of the renal parenchyma and renal collecting system. Automated exposu re control and iterative reconstruction technique were employed. The dose-length product was 1430.25 mGy-cm. COMPARISON: CT abdomen and pelvis 09/01/2013 FINDINGS: The visualized portions of lung bases demonstrate mild atelectasis. A calcified right lung nodule and calcified subcarinal lymph node are consistent with old granulomatous disease. No pleural effusion. Pectus excavatum is noted. The heart size is normal. No pericardial effusion. There is diffuse hepati c steatosis. The gallbladder, spleen, pancreas, adrenal glands, and kidneys are normal. There is no u rolithiasis. Right ureter is not well opacified, but is normal. Left ureter is not well opacified dis tally, but is normal. There is a fluid/fluid level of opacified and unopacified urine in the bladder. The bladder is not well distended. There is diverticulosis of the colon without evidence of divertic ulitis. The appendix is normal. There are no pathologically enlarged lymph nodes. There is a left ing uinal hernia containing fat. There is no ascites. There is mild thoracic and lumbar spondylosis. IMPRESSION: 1. No etiology for hematuria. Reviewed, dictated and finalized at location A.
--- NOTE | ~2024-02-02 | XR_ITS ---
XR abdomen/kub 1V Ordering provider: Chantal Cartagena, APPAREL STOCK CHECKER History: . GROSS HEMATURIA . Comparison: Is FINDINGS: BOWEL: Nonobstructive bowel gas pattern. ORGANOMEGALY: None. SIGNIFICANT PATHOLOGIC CALCIFICATIONS: None. OTHER: No free air is seen under the diaphragm. IMPRESSION: NO ACUTE ABDOMINAL FINDINGS. Reviewed, dictated and finalized at location A.
[2024-02-02 07:58] LABS: Estimated Glomerular Filt Rate > 60
== END 2024-02-02 07:29 | disposition home or self-care (01) ==
PROVIDERS: PCP Family Medicine; Visit Provider Nurse Practitioner Family
DX: R31.0 Gross hematuria (principal)
CPT/HCPCS: 74018; 74178; Q9967

== ENCOUNTER 2024-03-07 10:52 | Outpatient (CLI) | payer OTHER, SELFPAY ==
--- NOTE | ~2024-03-07 | MM_ITS ---
EXAMINATION: MM screening [facility] BI w naheed HISTORY: Screening TECHNIQUE: Craniocaudal and mediolateral oblique 3-D tomosynthesis images were obtained and synthetic 2-D images were generated. CAD analysis was submitted and interpreted. COMPARISON: Comparison to multiple prior studies sequentially, with oldest reviewed study dated 09/08. BREAST PARENCHYMAL COMPOSITION: Not dense: There are scattered areas of fibroglandular density. FINDINGS: There is no evidence of suspicious mass, calcification, or architectural distortion to sugg est malignancy in either breast. There has been no suspicious interval change. IMPRESSION: 1. No mammographic evidence of malignancy. 2. Recommend routine screening mammography in one year. BI-RADS Category 1: Negative Reviewed, dictated and finalized at location B. ULATION MANAGER
== END 2024-03-07 10:53 | disposition home or self-care (01) ==
PROVIDERS: PCP Nurse Practitioner; Visit Provider Nurse Practitioner
DX: Z12.31 Encounter for screening mammogram for malignant neoplasm of breast (principal)
CPT/HCPCS: 77063; 77067

== ENCOUNTER 2024-04-25 13:21 | Outpatient (CLI) | payer OTHER, SELFPAY ==
--- NOTE | ~2024-04-25 | XR_ITS ---
XR wrist LT min 3V Ordering provider: Hayden Renteria MD History: . G56.00 - Carpal tunnel syndrome, unspecified upper limb . Comparison: None. FINDINGS: BONES: No acute fracture or dislocation. No definite scaphoid fracture. JOINT SPACES: Well maintained. SOFT TISSUES: Normal. IMPRESSION: No acute osseous abnormality left wrist. Reviewed, dictated and finalized at location A. EF MANAGER
== END 2024-04-25 13:22 | disposition home or self-care (01) ==
PROVIDERS: PCP Nurse Practitioner; Visit Provider Plastic Surgery
DX: G56.03 Carpal tunnel syndrome, bilateral upper limbs (principal); M67.49 Ganglion, multiple sites; M67.89 Other specified disorders of synovium and tendon, multiple sites; M71.39 Other bursal cyst, multiple sites; S63.502A Unspecified sprain of left wrist, initial encounter; X58.XXXA Exposure to other specified factors, initial encounter
CPT/HCPCS: 73110

== ENCOUNTER 2024-05-10 14:16 | Outpatient (CLI) | payer OTHER, SELFPAY ==
--- NOTE | ~2024-05-10 | MR_ITS ---
EXAMINATION: MR wrist LT wo/w con DATE: 05/10/2024 15:18 INDICATION: Several months of left wrist pain. TECHNIQUE: Magnetic resonance imaging (MRI) of the without and with the mL Multihance wrist was perfo rmed without intravenous contrast. Sequences performed include in axial, sagittal and coronal T1-weig hted FSE and T2-weighted FS FSE, axial T1-weighted FS FSE and postcontrast T1-weighted FS FSE. COMPARISON: Left wrist radiographs dated 04/25/2024 FINDINGS: Intrinsic ligaments: The scapholunate and lunotriquetral ligaments are normal. Triangular fibrocartilage complex (TFCC): The triangular fibrocartilage including its foveal and styloid attachments as well as the dorsal and volar radioulnar ligaments are normal. The ulnar collateral ligament, ulnotriquetral ligament and men iscal homologue are normal. Extensor wrist: There is a tear of the extensor carpi ulnaris (ECU) sheath with the extensor carpi ulnaris tendon dis located across the ulnar side of the ECU groove. The extensor carpi ulnaris tendon appears normal. Th e remaining extensor tendons of the wrist are also normal. No tenosynovitis. Flexor wrist: The flexor tendons of the wrist are normal. No abnormality in the carpal tunnel with normal median n erve. Guyon's canal: Guyon's canal including the ulnar nerve and artery are normal. Bones/other: Bone alignment is normal. There is mild subarticular edema-like signal change at the distal ulna. Mar row signal is otherwise unremarkable with no fracture or pathologic marrow replacing process. Mild os teoarthritis at the triscaphe and first carpal metacarpal joints. No joint effusions. There is mild e nhancing synovitis at the distal radioulnar joint and extending into the empty ECU groove. No ganglio n cysts or abnormally enhancing lesions identified. IMPRESSION: 1. Tear of the extensor carpi ulnaris sub sheath with ulnar dislocation of the extensor carpi ulnaris tendon from its groove at the distal ulna. Reviewed, dictated and finalized at location B. E SITTER
== END 2024-05-10 14:17 | disposition home or self-care (01) ==
LOC: MICIMG 14:17
PROVIDERS: PCP Plastic Surgery; Visit Provider Plastic Surgery
DX: S56.512A Strain of other extensor muscle, fascia and tendon at forearm level, left arm, initial encounter (principal); S63.075A Dislocation of distal end of left ulna, initial encounter; M67.49 Ganglion, multiple sites; M67.89 Other specified disorders of synovium and tendon, multiple sites; M71.39 Other bursal cyst, multiple sites; X58.XXXA Exposure to other specified factors, initial encounter
CPT/HCPCS: 73223; A9577

== ENCOUNTER 2024-10-25 02:07 | Day surgery (SDC) | payer OTHER, SELFPAY ==
[2024-10-16 15:13] VITALS: BMI 38.7
--- NOTE | 2024-10-16 15:15 | PC.NURSE ---
Report to the Outpatient Waiting Room, entrance under the green pavilion located off [facility], at time _1015_ on date _[id number]_. Planned Procedure Time: _1215_.? Time changes happen often and if your time is changed the preop area will call you the afternoon before. - You and your visitor will be asked to self-screen and do not enter if you have any COVID symptoms. Please call surgeon if you need to reschedule. - A mask is optional within the hospital at this time. May have clear liquids (water, carbonated beverages, clear teas, apple juice) until 415am prior to surgery with a maximum of 20 ounces. Nothing to drink after 415am. - No food from midnight until time of surgery and no smoking, or chewing tobacco (or any form of nicotine). No chewing gum, candy or mints. Take only the following medications with a SIP of water on the morning of surgery: __Fluoxetine, Amlodipine and Levothyroxine. DO NOT STOP ANY OF YOUR OTHER PRESCRIPTION MEDICATIONS PRIOR TO SURGERY EXCEPT THE FOLLOWING Hold all vitamins and supplements for 3 days per anesthesiologist. Medications to discontinue per physician Date to take last dose Please no make-up, nail divehi, hairspray, perfume, deodorant, or body powder the day of surgery.? No jewelry (including any body piercings) or valuables the day of surgery, leave them at home.? Please take a shower or bath the night before, or the morning of, surgery with an antibacterial soap.? Wear comfortable, loose fitting clothing.? - Jewelry must be removed prior to entering the operating room.? Rings and piercings that are not removed may be cut off. - The hospital will not accept responsibility for valuables.? - Please leave all valuables, including medications, at home the day of surgery. If you are going home after surgery, a licensed haul truck driver must drive you home.? - NO public transportation without another adult if you receive anesthesia. - We recommend that an adult stay with you for 24 hours following discharge. - We also recommend that you do not drive, make important decision, drink alcoholic beverages, or take any drugs that were not prescribed by your health care provider for at least 24 hours after your discharge time. Follow any additional instructions given to you from your surgeon. Telephone instructions given to _Kim__and asked if any additional questions and then verbalized understanding. Patient advised to call surgeon office or pre surgery nurse liaison [phone] if any additional questions.
--- OUTSIDE RECORDS SUMMARY | 2024-10-25 02:11 | XMS_ITS | Clinical Summary ---
Author Organization [facility] Address [address] [place] [id number] Care Team Providers Care Drop Clipper Name Role Phone Calos Jackson MD Primary Care Provider + [phone] Angel Castro MD Unavailable [phone] Allergies No known active allergies Medications FLUoxetine (PROzac) 40 mg capsule Take 40 mg by mouth daily 4 9 Active hydroCHLOROthia zide (HYDRODIURIL) 25 mg tablet TK 1 T PO QD 2 9 Active levothyroxine (SYNTHROID) 50 mcg tablet Take 50 mcg by mouth business architect before breakfast qd Active cetirizine (ZyrTEC) 10 mg tablet Take 10 mg by mouth daily prn Active fluticasone propionate (FLONASE ALLERGY RELIEF) 50 mcg/actuation nasal spray Administer 1 spray into each nostril daily prn Active ergocalciferol, vitamin D2, (VITAMIN D2 ORAL) Take by mouth Unsure med dosage prn Active Active Problems Problem Noted Date Diagnosed Date Abnormal liver ultrasound 03/16/2019 Family History Medical History Relation Name Comments Heart attack Father Hypertension Mother Breast cancer Sister Relation Name Status Comments Father Mother Sister Social History Tobacco Use Types Packs/Day Years Used Date Smoking Tobacco: Every Day Personal Safety Answer Date Recorded Getting School Help Needed Not on file 06/26 Comments Unknown Sex and Gender Information Value Date Recorded Sex Assigned at Not on file Legal Sex Female 10:24 AM CDT Gender Identity Not on file Sexual Orientation Not on file Obstetrics History Last Filed Vital Signs Vital Sign Reading Time Taken Comments Blood Pressure 156/113 03/16/2019 9:02 AM TRAILER BODY ASSEMBLER Pulse 101 03/16/2019 9:01 AM TRAILER BODY ASSEMBLER Temperature 37.3 C (99.2 F) 03/16/2019 9:01 AM TRAILER BODY ASSEMBLER Respiratory Rate - - Oxygen Saturation - - Inhaled Oxygen Concentration - - Weight 102.2 kg (225 lb 6.4 oz) 03/16/2019 9:01 AM TRAILER BODY ASSEMBLER Height 168.9 cm (5' 6.5) 03/16/2019 9:01 AM TRAILER BODY ASSEMBLER Body Mass Index 35.84 03/16/2019 9:01 AM TRAILER BODY ASSEMBLER Plan of Treatment Not on file Insurance [employer] ACCESS Care Teams Drop Clipper Relationship Specialty Start Date End Date Calos Jackson MD PCP - General Family Medicine 08/12/18 Angel Castro MD Referring Physician Transplant Hepatology 03/16/19
--- OUTSIDE RECORDS SUMMARY | 2024-10-25 02:11 | XMS_ITS | Clinical Summary ---
Author Organization [facility] Address [address] [place] [id number] Care Team Providers Care Trial Paralegal Name Role Phone Unavailable Primary Care Provider Unavailabl e Social History Tobacco Use Types Packs/Day Years Used Date Smoking Tobacco: Never Assessed Comments Unknown Sex and Gender Information Value Date Recorded Sex Assigned at Not on file Legal Sex Female 7:23 PM CDT Gender Identity Not on file Sexual Orientation Not on file Plan of Treatment Health Maintenance Due Date Last Done Comments Cervical Cancer Screening Pa p Smear (Age 30 to 64) Every 3 Years 1969 Colorectal Cancer Screening Colonoscopy (10 Years) 1969 Annual Physical 1972 Hepatitis C 10/14/1987 DTaP, Tdap and Td Vaccines ( 1 - Tdap) 1988 Hepatitis B Vaccines (1 of 3 - 19+ 3-dose series) 1988 Cervical Cancer Screening Pa p with HPV Testing (Age 30 to 64) Every 5 Years 10/14/1999 Cervical Cancer Screening with HPV 10/14/1999 Mammogram Screening 2009 Pneumococcal Vaccine: 50+ Ye ars (1 of 1 - PCV) 10/14/2019 Zoster Vaccines (1 of 2) 10/14/2019 COVID-19 Vaccine ( - 2023-2 5 season) 2023 Meningococcal B Vaccine Aged Out No l onger eligible based on patient's age to complete this topic Meningococcal Vaccine Aged Out No liliana jesus eligible based on patient's age to complete this topic RSV Immunizations Under 20 Months Aged Out No longer eligible based on patient's age to complete this topic
--- OUTSIDE RECORDS SUMMARY | 2024-10-25 02:11 | XMS_ITS | Referral Summary ---
Author Organization [facility] Address [address] [place] [id number] Care Team Providers Care Barrel Rib Matting Machine Operator Name Role Phone Calos Jackson MD Primary Care Provider + [phone] Angel Castro MD Unavailable [phone] Allergies No known active allergies Medications FLUoxetine (PROzac) 40 mg capsule Take 40 mg by mouth daily 4 9 Active hydroCHLOROthia zide (HYDRODIURIL) 25 mg tablet TK 1 T PO QD 2 9 Active levothyroxine (SYNTHROID) 50 mcg tablet Take 50 mcg by mouth general merchandise salesperson before breakfast qd Active cetirizine (ZyrTEC) 10 mg tablet Take 10 mg by mouth daily prn Active fluticasone propionate (FLONASE ALLERGY RELIEF) 50 mcg/actuation nasal spray Administer 1 spray into each nostril daily prn Active ergocalciferol, vitamin D2, (VITAMIN D2 ORAL) Take by mouth Unsure med dosage prn Active Active Problems Problem Noted Date Diagnosed Date Abnormal liver ultrasound 03/16/2019 Social History Tobacco Use Types Packs/Day Years Used Date Smoking Tobacco: Every Day Personal Safety Answer Date Recorded Getting School Help Needed Not on file 06/26 Comments Unknown Sex and Gender Information Value Date Recorded Sex Assigned at Not on file Legal Sex Female 10:24 AM CDT Gender Identity Not on file Sexual Orientation Not on file Last Filed Vital Signs Vital Sign Reading Time Taken Comments Blood Pressure 156/113 03/16/2019 9:02 AM FLORAL DESIGNER SALESPERSON Pulse 101 03/16/2019 9:01 AM FLORAL DESIGNER SALESPERSON Temperature 37.3 C (99.2 F) 03/16/2019 9:01 AM FLORAL DESIGNER SALESPERSON Respiratory Rate - - Oxygen Saturation - - Inhaled Oxygen Concentration - - Weight 102.2 kg (225 lb 6.4 oz) 03/16/2019 9:01 AM FLORAL DESIGNER SALESPERSON Height 168.9 cm (5' 6.5) 03/16/2019 9:01 AM FLORAL DESIGNER SALESPERSON Body Mass Index 35.84 03/16/2019 9:01 AM FLORAL DESIGNER SALESPERSON Plan of Treatment Not on file Insurance [employer] ACCESS Care Teams Barrel Rib Matting Machine Operator Relationship Specialty Start Date End Date Calos Jackson MD PCP - General Family Medicine 08/12/18 Angel Castro MD Referring Physician Transplant Hepatology 03/16/19
--- NOTE | 2024-10-25 06:47 | P.HP_ITS ---
History of Present Illness History of Present Illness Chief complaint: left carpal and cubital tunnel syndrome, Narrative: Patient seen and examined in pre-operative holding area. No interval change in medical history or symptoms. Patient recalls previous discussion of benefits and alternatives to procedure. Continues to desire to proceed with left endoscopic possible open carpal tunnel release, left cubital tunnel release and left extensor carpi ulnaris sheath release/reconstruction. Reviewed procedure, post- op expectations and risks including but not limited to bleeding, infection, injury to tendon/nerve/vessel, decreased hand function, stiffness, RSD, no change or worsening of symptoms. I discussed the possible use of assistants and their participation in the case. Patient stated understanding and signed the consent form wishing to proceed. Review of Systems Review of Systems: All systems reviewed & are unremarkable except as noted in HPI and below PMFSH Past Medical History Medical History Prediabetes Pharyngitis GERD (gastroesophageal reflux disease) (normal spontaneous vaginal delivery) x2 Depression Sleep apnea Elevated cholesterol BMI 38.0-38.9,adult Osteoarthritis On statin therapy Hypertension Pain in finger of right hand Sinusitis Persistent cough Left ankle sprain (05/23/19) Hypothyroidism Surgical History Surgical History History of hysteroscopy 2008 & 2023 benign Family History Family History Grandparent Hypertension Father Acute myocardial infarction Mother No problems noted. Sibling Breast cancer Social History Social History Smoking packs per day: 2 Smoking cigarettes per day: 40.0 Years smoked: 15 Smoking pack-years: 30.00 Smoking status: Former smoker Tobacco type: cigarettes Second hand tobacco smoke exposure: No Smoking end date: 04/18/23 Alcohol intake: current Drinks per week: 20 Alcohol use details: WEEKENDS Substance use: never Substance use type: does not use Lack of Transportation: No Lack of Food: Never True Current Housing: I Have Housing Concerned About Future Housing: No Difficulty Paying Gas/Electric Bills: No Difficulty Paying for Meds: No Currently Unemployed: No Education: High School Diploma/GED Difficulty w/ Childcare or Family Care: No Living arrangements: with family 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 Gender identity (if verbalized by the patient): Female Spiritual care concerns: No Meds Home Medications and Allergies Home Medications ?Medication ?Instructions ?Recorded ?Confirmed ?Type fluoxetine 40 mg capsule (Prozac) 40 mg PO DAILY 09/07/23 10/25/24 History omeprazole 40 mg capsule,delayed 40 mg PO DAILY #30 caps 12/01/23 10/25/24 Rx release fexofenadine 180 mg tablet 180 mg PO DAILY PRN chronic 02/28/24 10/25/24 History (Rosita Allergy) seasonal allergic rhinitis rosuvastatin 20 mg tablet 20 mg PO DAILY #90 tabs 04/27/24 10/25/24 Rx cyclobenzaprine 5 mg tablet 5 mg PO TID PRN muscle spasm #30 05/24/24 10/25/24 Rx tabs hydrochlorothiazide 25 mg tablet See Rx Instructions .Route 09/11/24 10/25/24 Rx .COMPLEX #90 tabs amlodipine 5 mg tablet 5 mg PO DAILY #90 tabs 09/28/24 10/25/24 Rx tirzepatide 2.5 mg/0.5 mL 2.5 mg (0.5 mL) subcut WEEKLY #2 mL 10/05/24 10/16/24 Rx subcutaneous pen injector (Mounjaro) levothyroxine 50 mcg tablet 50 mcg PO DAILY #90 tabs 10/10/24 10/25/24 Rx (Synthroid) semaglutide 0.25 mg or 0.5 mg (2 0.5 mg subcut WEEKLY 10/16/24 10/25/24 History mg/1.5 mL) subcutaneous pen injector (Ozempic) hydrocodone 5 mg-acetaminophen 325 1 tablet PO Q6H PRN pain #8 tabs 10/25/24 Rx mg tablet Allergies Allergy/AdvReac Type Severity Reaction Status Date / Time No Known Allergies Allergy Verified 10/25/24 11:31 Exam Narrative: unchanged Assessment and Plan Assessment and plan (1) Strain of extensor tendon of left wrist: Code(s): S56.512A - Strain of other extensor muscle, fascia and tendon at forearm level, left arm, initial encounter Status: Acute Assessment and Plan: cont as above (2) Carpal tunnel syndrome: Qualifiers: Laterality: left Qualified Code(s): G56.02 - Carpal tunnel syndrome, left upper limb Code(s): G56.00 - Carpal tunnel syndrome, unspecified upper limb Status: Acute (3) Numbness and tingling in both hands: Code(s): R20.0 - Anesthesia of skin; R20.2 - Paresthesia of skin Status: Acute
--- NOTE | 2024-10-25 06:48 | P.OP_ITS ---
Procedure Note - Detailed Date of Procedure 10/25/24 Pre-op Diagnosis left carpal and cubital tunnel syndrome and left ecu tenosynovitis Post-op Diagnosis Same Procedure Performed left ectr, left CuTR and left ecu sheath release and recon Surgeon Hayden Renteria MD Fumigator And Sterilizer chivo braga pa-c Anesthesia MAC Description of Procedure INFORMED CONSENT: The patient was seen and examined and marked in the pre-op area.? The patient signed the consent form. PROCEDURE IN DETAIL:The patient taken back to OR on the stretcher in supine position. Time out performed with anesthesia, surgeon and staff agreeing on patient's name site and surgery to be performed SCDs were placed on the lower extremities and inflated. A tourniquet was placed on {left} upper extremity and antibiotics given IV After anesthesia administered sedation I injected {10}cc 1%lido with epi and 0.5% marcaine plain at the operative sites The?left upper extremity}?was prepped and draped in sterile fashion the??{left upper extremity} was? exsanguinated with Esmarch bandage and tourniquet inflated to 250mmHg I made a transverse incision in the {left} volar distal wrist crease through skin and dermis with 15 blade scalpel.? Littler scissors spread down to antebrachial fascia. A small incision was made in antebrachial fascia allowing access to Carpal tunnel. I proceeded with sequential dilation staying in line with the ring finger and hugging the hook of the hamate.? I then used the synovial elevator to free any adhesions from the underside of the transverse carpal ligament. Next I was able to insert the Microaire endoscopic carpal tunnel device with direct visualization of the transverse fibers on the monitor and proceeded with complete segmental retrograde release of the ligament in its entirety.? I irrigated with normal saline and closed with 4-0 monocryl for dermis and subcuticular closure. I proceeded with making a longitudinal incision over the left extensor carpi ulnaris tendon near the ulnar head through skin and dermis with a 15 blade scalpel. Littler scissors were used to spread through subcutaneous tissue down to the extensor retinaculum. I made an incision along the ECU sheath with 15 blade scalpel. The ECU appeared somewhat frayed in appearance. The floor of the ECU sheath was evaluated and noted not be have evidence of tear or excess laxity. druj was stable. I irrigated with normal saline. There was no subluxation of extensor tendon from the ulnar groove. 3-0 vicryl was used to secure the volar aspect of the ecu sheath to dermis. Closure was done with 3-0 Vicryl for dermis and 4-0 Monocryl for subcuticular closure. I next proceeded with making a longitudinal incision between two heads for flexor carpi ulnaris at end of {left} cubital tunnel with 15 blade scalpel.? Littler scissors were used to spread down to FCU fascia.? An incision was made in FCU fascia and ulnar nerve identified exiting cubital tunnel.? I proceeded with complete retrograde release of the cubital tunnel including 7cm proximal for the intermuscular septum.? The nerve appeared healthy with visible vaso nervorum.? There was no subluxation on full elbow range of motion. ? I irrigated with normal saline and closure with 4-0 monocryl for dermis and subcuticular. The incisions were covered with Dermabond then 4x4s, zonia, and a posterior elbow and ulnar gutter splint for patient safety, security and comfort and secured with li bandages after the tourniquet was let down noting the hand was warm and well perfused.? Patient awaken from anesthesia and transferred to recovery in stable condition Complications - none EBL- 1cc Disposition - home in stable conditions chivo braga pa-c was essential for positioning, retraction, closure and dressing placement [facility] Billing Surgery - Charge Forward: Surgery Billing ([id number] same for chivo jay )
[2024-10-25 10:20] VITALS: BP 134/97; PULSE 87; RESP 18; TEMP 36.3; O2SAT 96
[2024-10-25] MEDS: ACETAMINOPHEN 500 MG TABLET 1000 MG PO (11:30)
[2024-10-25] MEDS: LACTATED RINGERS 1,000 ML 30 ML IV CONT (11:47)
--- NOTE | 2024-10-25 12:14 | WPDANESEPPF ---
Anes - Initial Pre Proc Eval Procedure: Operation Date: 10/25/24 12:15 Proposed Procedures p Left Endoscopic Carpal Tunnel Release, Possible Open, Left Cubital Tunnel Release, Left Extensor Carpi Ulnari Release/Reconstruction - Hayden Renteria MD Date/Time: 10/25/24 12:14 Surgeon: Hayden Renteria MD Pre Op Diagnosis: left carpal and cubital tunnel syndrome, Patient Data Age: 54 Gender: F Height: 1.69 m Weight: 110.5 kg Last Vital Signs Temp 97.3 F L 10/25/24 10:20 Pulse 87 10/25/24 10:20 Resp 18 10/25/24 10:20 BP 134/97 H 10/25/24 10:20 Pulse Ox 96 10/25/24 10:20 O2 Del Method Room Air 10/25/24 10:20 Allergies Allergy/AdvReac Type Severity Reaction Status Date / Time No Known Allergies Allergy Verified 10/25/24 11:31 Home Medications ?Medication ?Instructions ?Recorded ?Confirmed ?Type fluoxetine 40 mg capsule (Prozac) 40 mg PO DAILY 09/07/23 10/25/24 History omeprazole 40 mg capsule,delayed 40 mg PO DAILY #30 caps 12/01/23 10/25/24 Rx release fexofenadine 180 mg tablet 180 mg PO DAILY PRN chronic 02/28/24 10/25/24 History (Rosita Allergy) seasonal allergic rhinitis rosuvastatin 20 mg tablet 20 mg PO DAILY #90 tabs 04/27/24 10/25/24 Rx cyclobenzaprine 5 mg tablet 5 mg PO TID PRN muscle spasm #30 05/24/24 10/25/24 Rx tabs hydrochlorothiazide 25 mg tablet See Rx Instructions .Route 09/11/24 10/25/24 Rx .COMPLEX #90 tabs amlodipine 5 mg tablet 5 mg PO DAILY #90 tabs 09/28/24 10/25/24 Rx tirzepatide 2.5 mg/0.5 mL 2.5 mg (0.5 mL) subcut WEEKLY #2 mL 10/05/24 10/16/24 Rx subcutaneous pen injector (Mounjaro) levothyroxine 50 mcg tablet 50 mcg PO DAILY #90 tabs 10/10/24 10/25/24 Rx (Synthroid) semaglutide 0.25 mg or 0.5 mg (2 0.5 mg subcut WEEKLY 10/16/24 10/25/24 History mg/1.5 mL) subcutaneous pen injector (Ozempic) hydrocodone 5 mg-acetaminophen 325 1 tablet PO Q6H PRN pain #8 tabs 10/25/24 Rx mg tablet Laboratory Tests 10/25/24 11:49 POC Capillary Glucose 88 mg/dl (65-105) Patient hx anesthesia problems: none Family hx anesthesia problems: none Results Review: All pre-operative results and documents have been reviewed as part of the pre-operative evaluation. [facility] Past Medical History Medical History Prediabetes Pharyngitis GERD (gastroesophageal reflux disease) (normal spontaneous vaginal delivery) x2 Depression Sleep apnea Elevated cholesterol BMI 38.0-38.9,adult Osteoarthritis On statin therapy Hypertension Pain in finger of right hand Sinusitis Persistent cough Left ankle sprain (05/23/19) Hypothyroidism Surgical History Surgical History History of hysteroscopy 2008 & 2023 benign Family History Family History Grandparent Hypertension Father Acute myocardial infarction Mother No problems noted. Sibling Breast cancer Social History Social History Smoking packs per day: 2 Smoking cigarettes per day: 40.0 Years smoked: 15 Smoking pack-years: 30.00 Smoking status: Former smoker Tobacco type: cigarettes Second hand tobacco smoke exposure: No Smoking end date: 04/18/23 Alcohol intake: current Drinks per week: 20 Alcohol use details: WEEKENDS Substance use: never Substance use type: does not use Lack of Transportation: No Lack of Food: Never True Current Housing: I Have Housing Concerned About Future Housing: No Difficulty Paying Gas/Electric Bills: No Difficulty Paying for Meds: No Currently Unemployed: No Education: High School Diploma/GED Difficulty w/ Childcare or Family Care: No Living arrangements: with family 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 HTN, hyperlipidemia, BMI 38, MARY mostly noncompliant w CPAP, DM fsbs 88. Pt off GLP1 for 7 days. Informed Consent: The patient's anesthetic plan and its attendant risks and benefits were discussed with the patient/family/POA. Questions were solicited and answers provided to the satisfaction of the patient/family/POA.
[2024-10-25] MEDS: ceFAZolin 2 GM in SODIUM CHLORIDE 0.9% IV 50 ML 100 ML IVPB (13:06)
[2024-10-25] MEDS: BUPivacaine HCL 0.5% 10 ML AMP 5 ML INFILTRATE (13:13)
[2024-10-25] MEDS: LIDO 1%/EPINEPHRINE 1:100,000 50 ML VIAL INFILTRATE (13:14)
--- NOTE | 2024-10-25 13:25 | S_PTH ---
PATIENT: Olivia Clarke LOC: [facility] U#:[id number] AGE/SX: 54/F ROOM: RE10/25/[address]: Hayden Renteria MD : 1970 BED: DIS: 10/25/2024 SPEC #: [id number] RECD: 10/26/24 07:30 STATUS: VIRGEN REJoanna #: [id number] NICOLAS: 10/25/24 13:[address]: Hayden Renteria DEPT: [facility] Surgical RECD BY: Krystin Madera ENTERED: 10/26/24 07:30 SP TYPE: Surgical OTHR DR: Calos Jackson MD Tissues: A - Synovium Procedures: Hematoxylin and Eosin Stain Gross and Microscopic Level 3
[2024-10-25 13:55] VITALS: BP 135/71; PULSE 84; RESP 16; O2SAT 94
[2024-10-25 14:25] VITALS: BP 138/76; PULSE 72; RESP 20
[2024-10-25 14:35] VITALS: BP 125/54; PULSE 68; RESP 20
== END 2024-10-25 14:40 | disposition home or self-care (01) ==
PROVIDERS: PCP Family Medicine; Visit Provider Plastic Surgery
PROC: 01N54ZZ Release Median Nerve, Percutaneous Endoscopic Approach (ICD-10-PCS; CPT 29848; principal; 2024-10-25 12:15)
DX: G56.02 Carpal tunnel syndrome, left upper limb (principal); G56.22 Lesion of ulnar nerve, left upper limb; M65.832 Other synovitis and tenosynovitis, left forearm; S56.512A Strain of other extensor muscle, fascia and tendon at forearm level, left arm, initial encounter; X58.XXXA Exposure to other specified factors, initial encounter; Z87.891 Personal history of nicotine dependence; Z79.85 Long-term (current) use of injectable non-insulin antidiabetic drugs
CPT/HCPCS: 29848; 64718; 25275; 82948; 88304; J0690; A9270; J2003; J2004; J2250; J2405; J2704; J3010; J7120

== ENCOUNTER 2025-01-24 13:24 | Outpatient (CLI) | payer OTHER, SELFPAY ==
--- NOTE | ~2025-01-24 | US_ITS ---
EXAMINATION: US soft tissue LE RT DATE: 01/24/2025 13:38 INDICATION: Localized swelling, mass or lump at the right lower limb TECHNIQUE: Multiple grayscale and Doppler ultrasound images of the anterior mid right lower leg at the region of concern were obtained. COMPARISON: None FINDINGS/IMPRESSION: Normal appearance to the subcutaneous fat in the visualized underlying bone and musculature at the region of concern. No abnormal masses or fluid collections identified. Reviewed, dictated and finalized at location A.
== END 2025-01-24 13:25 | disposition home or self-care (01) ==
LOC: MICIMG 13:25
PROVIDERS: PCP Family Medicine; Visit Provider Nurse Practitioner Family
DX: R22.41 Localized swelling, mass and lump, right lower limb (principal)
CPT/HCPCS: 76882

== ENCOUNTER 2025-04-02 14:36 | Outpatient (CLI) | payer OTHER, SELFPAY ==
--- NOTE | ~2025-04-02 | DEXA_ITS ---
Bone Density Report Name: PARAG ALLEN Age: 54 Sex: Female Ethnicity: White Date of : 1970 Indication: postmenopausal; screening for osteoporosis; Referring Provider: STEPHANIE, VANITA Study: Bone densitometry was performed. Exam Date: April 02, 2025 Accession number: [id number] Bone Density: Region BMD T-score Z-score Classification AP Spine(L1-L4) 1.169 1.1 2.2 Normal Femoral Neck (Left) 0.840 -0.1 1.0 Normal Total Hip (Left) 1.021 0.7 1.3 Normal Femoral Neck (Right) 0.854 0.0 1.1 Normal Total Hip (Right) 1.039 0.8 1.5 Normal Total Hip Mean 1.030 0.8 1.4 Normal World Health Organization criteria for BMD impression classify patients as: Normal (T-score at or above -1.0), Osteopenia (T-score between -1.0 and -2.5), or Osteoporosis (T-score at or below -2.5). 10-year Fracture Risk: FRAX not reported because: All T-scores for Spine Total, Hip Total, Femoral Neck at or above -1.0 Clinical Information Provided by Patient: Has used the following medications: Vitamin D Patient maximum height was 66 Menopause Age: 52 No regular weight bearing exercise Drinks caffeinated beverages Onset of menses at age 13 Number of children 2 Impression: The patient has normal bone mass. Discussion: BONE DENSITY IS ABOVE THE MINIMUM DESIRABLE LEVEL AT ALL SKELETAL SITES TESTED. This patient?s bone mineral density is above the minimum desirable level (T-score -1.0 or better) at all sites measured. The patient should follow a healthful lifestyle (good nutrition with adequate calcium and vitamin D, and appropriate weight-bearing exercise). Follow-Up: Consider repeating this study in 5 years or sooner if there is some new clinical indication. Reported by: DARIA on 04/02/2025 3:23:00 PM. Reviewed, dictated and finalized at location A.
--- OUTSIDE RECORDS SUMMARY | 2025-04-02 16:25 | XMS_ITS | Clinical Summary ---
Author Organization [facility] Address [address] [place] [id number] Care Team Providers Care Cupola Patcher Name Role Phone Calos Jackson MD Primary Care Provider + [phone] Angel Castro MD Unavailable [phone] Allergies No known active allergies Medications FLUoxetine (PROzac) 40 mg capsule Take 40 mg by mouth daily 4 9 Active hydroCHLOROthia zide (HYDRODIURIL) 25 mg tablet TK 1 T PO QD 2 9 Active levothyroxine (SYNTHROID) 50 mcg tablet Take 50 mcg by mouth panel maker before breakfast qd Active cetirizine (ZyrTEC) 10 [...] Comments Blood Pressure 156/113 03/16/2019 9:02 AM X 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 Pulse 101 03/16/2019 9:01 AM X 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 Temperature 37.3 C (99.2 F) 03/16/2019 9:01 AM X 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 Respiratory Rate - - Oxygen Saturation - - Inhaled Oxygen Concentration - - Weight 102.2 kg (225 lb 6.4 oz) 03/16/2019 9:01 AM X 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 Height 168.9 cm (5' 6.5) 03/16/2019 9:01 AM X 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 Body Mass Index 35.84 03/16/2019 9:01 AM X 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 Plan of Treatment Not on file Insurance [employer] Care Teams Cupola Patcher Relationship Specialty Start Date End Date Calos Jackson MD PCP - General Family Medicine 08/12/18 Angel Castro MD Referring Physician Transplant Hepatology 03/16/19
--- OUTSIDE RECORDS SUMMARY | 2025-04-02 16:25 | XMS_ITS | Clinical Summary ---
Author Organization [employer] [facility] lin Address [address] [place] [address] Care Team Providers Care Air Quality Manager Name Role Phone Unavailable Primary Care Provider Unavailabl e Social History Tobacco Use Types Packs/Day Years Used Date Smoking Tobacco: Never Assessed Comments Unknown Sex and Gender Information Value Date Recorded Sex Assigned at Not on file Legal Sex Female 8:01 PM EST Gender Identity Not on file Sexual Orientation Not on file Plan of Treatment Not on file Medical Devices Not on file Insurance [facility]
--- OUTSIDE RECORDS SUMMARY | 2025-04-02 16:25 | XMS_ITS | Clinical Summary ---
Author Organization [facility] Address [address] [place] [id number] Care Team Providers Care Store Promoter Name Role Phone Unavailable Primary Care Provider [...] of 2) 10/14/2019 COVID-19 Vaccine ( - 2024-2 6 season) 2024 Influenza Adult (#1) 2025 Hepatitis A Vaccines Aged Out No long er eligible based on patient's age to complete this topic Meningococcal B Vaccine Aged Out No l onger eligible based on patient's age to complete this topic Meningococcal Vaccine Aged Out No liliana jesus eligible based on patient's age to complete this topic RSV Immunizations Under 20 Months Aged Out No longer eligible based on patient's age to complete this topic
== END 2025-04-02 14:37 | disposition home or self-care (01) ==
PROVIDERS: PCP Family Medicine; Visit Provider Nurse Practitioner
DX: Z78.0 Asymptomatic menopausal state (principal); Z13.820 Encounter for screening for osteoporosis
CPT/HCPCS: 77080